=== PATIENT | female | born 1985 | race Caucasian/White ===

== ENCOUNTER 2019-02-14 19:17 | Emergency (ER) | payer MEDICAID ==
--- NOTE | 2019-02-14 19:30 | Emergency Department Report ---
Blank Doc - Documentation Documentation: This is a 34-year-old female that presents with dysuria and pelvic pain. This initial assessment/diagnostic orders/clinical plan/treatment(s) is/are subject to change based on patient's health status, clinical progression and re- assessment by fellow clinical providers in the ED. Further treatment and workup at subsequent clinical providers discretion. Patient/guardians urged not to elope from the ED as their condition may be serious if not clinically assessed and managed. Initial orders include: 1- Patient sent to [facility] for further evaluation and treatment 2- UA
[2019-02-14 19:31] VITALS: BP 106/65
[2019-02-14 21:14] LABS: Bacteria,Urine 4+ /HPF (Negative); Bilirubin,Urine NEG (Negative); Blood,Urine LG (Negative); Color,Urine Amber (Yellow); Mucus,Urine FEW /HPF; Urobilinogen,Urine < 2.0 mg/dL (<2.0)
[2019-02-14 21:18] LABS: HCG Qualitative,Urine Negative (Negative); WBC,Urine > 182.0 /HPF (0.0-6.0)
--- NOTE | 2019-02-14 22:15 | Emergency Department Report ---
ED Female HPI - General Chief complaint: Abdominal Pain Stated complaint: BLADDER PAIN WHEN URINATING Time Seen by Provider: 02/14/19 19:29 Source: patient Mode of arrival: Ambulatory Limitations: No Limitations - History of Present Illness Initial comments: This is a 34-year-old female that presents to the emergency room with dysuria for one week. Patient also reports some pressure to suprapubic region. She is currently taking Azo. Patient states Azo usually take care of urinary tract infections for her. She also reports nausea on yesterday without vomiting. MD Complaint: dysuria, pelvic pain Onset/Timin -: week(s) Location: suprapubic Radiation: non-radiating Severity: mild Severity scale (0 -10): 7 Quality: burning Consistency: intermittent Improves with: none Worsens with: urination Are you Now?: No Last Menstrual Period: 01/27/19 EDC: 11/03/19 Associated Symptoms: abdominal pain, dysuria. denies: vaginal discharge, vaginal bleeding, nausea/vomiting, fever/chills, headaches, loss of appetite, hematuria, rash, seizure, shortness of breath, syncope, weakness - Related Data Sexually active: Yes Previous Rx's Medication Instructions Recorded Last Taken Type levoFLOXacin [Levaquin TAB] 500 mg PO DAILY #5 tablet 08/31/15 Unknown Rx Nitrofurantoin [place]/M-Cryst 100 mg PO Q12HR #10 capsule 02/14/19 Unknown Rx [Macrobid CAP] Phenazopyridine [Pyridium] 200 mg PO TID #6 tab 02/14/19 Unknown Rx Allergies Allergy/AdvReac Type Severity Reaction Status Date / Time No Known Allergies Allergy Unverified 08/30/15 08:48 ED Review of Systems ROS: Stated complaint: BLADDER PAIN WHEN URINATING Other details as noted in HPI Constitutional: denies: chills, fever Respiratory: denies: cough, shortness of breath, wheezing Cardiovascular: denies: chest pain, palpitations Gastrointestinal: abdominal pain, nausea. denies: vomiting, diarrhea, constipation Genitourinary: dysuria. denies: urgency, hematuria, discharge Musculoskeletal: denies: back pain, joint swelling, arthralgia Skin: denies: rash, lesions Neurological: denies: headache, weakness, paresthesias Psychiatric: denies: anxiety, depression ED Past Medical Hx - Past Medical History Previous Medical History?: No Hx Congestive Heart Failure: No Hx Diabetes: No Hx Asthma: No Hx COPD: No Hx HIV: No - Surgical History Past Surgical History?: No - Social History Smoking Status: Never Smoker Substance Use Type: None - Medications Home Medications: Home Medications Medication Instructions Recorded Confirmed Last Taken Type levoFLOXacin [Levaquin TAB] 500 mg PO DAILY #5 tablet 08/31/15 Unknown Rx Nitrofurantoin [place]/M-Cryst 100 mg PO Q12HR #10 capsule 02/14/19 Unknown Rx [Macrobid CAP] Phenazopyridine [Pyridium] 200 mg PO TID #6 tab 02/14/19 Unknown Rx ED Physical Exam - General Limitations: No Limitations General appearance: alert, in no apparent distress - Respiratory Respiratory exam: Present: normal lung sounds bilaterally. Absent: respiratory distress - Cardiovascular Cardiovascular Exam: Present: regular rate, normal rhythm. Absent: systolic murmur, diastolic murmur, rubs, gallop - GI/Abdominal GI/Abdominal exam: Present: soft, tenderness (suprapubic), normal bowel sounds. Absent: distended, guarding, rebound, rigid - Back Exam Back exam: Absent: CVA tenderness (R), CVA tenderness (L) - Neurological Exam Neurological exam: Present: alert, oriented X3, normal gait - Psychiatric Psychiatric exam: Present: normal affect, normal mood - Skin Skin exam: Present: warm, dry, intact, normal color. Absent: rash ED Course Vital Signs 02/14/19 02/14/19 19:29 19:30 Temperature 98.2 F 98.2 F Pulse Rate 100 H 98 H Respiratory 18 18 Rate Blood Pressure 106/65 106/65 O2 Sat by Pulse 96 96 Oximetry ED Medical Decision Making - Lab Data Lab Results 02/14/19 Range/Units 20:39 Urine Color Purvi (Yellow) Urine Turbidity Cloudy (Clear) Urine pH 6.0 (5.0-7.0) Ur Specific [place] 1.015 (1.003-1.030) Urine Protein 100 mg/dl (Negative) mg/dL Urine Glucose (UA) Neg (Negative) mg/dL Urine Ketones Neg (Negative) mg/dL Urine Blood Lg (Negative) Urine Nitrite Pos (Negative) Urine Bilirubin Neg (Negative) Urine Urobilinogen < 2.0 (<2.0) mg/dL Ur Leukocyte Esterase Lg (Negative) Urine WBC (Auto) > 182.0 H (0.0-6.0) /HPF Urine RBC (Auto) 60.0 (0.0-6.0) /HPF U Epithel Cells (Auto) 4.0 (0-13.0) /HPF Urine Bacteria (Auto) 4+ (Negative) /HPF Urine WBC Clumps 3+ /HPF Ur Transition Epith Cell 5 /HPF Urine Mucus Few /HPF Urine HCG, Qual Negative (Negative) - Medical Decision Making Patient was examined by me. Vitals are normal and patient is in no acute distress. Obtained a urinalysis and urine hCG. Urinalysis positive for acute cystitis. Start Macrobid and Pyridium. Patient instructed to increase fluid intake. Plan discussed with patient to discharge home and treat outpatient. Plan discussed with patient to discharge home and treat outpatient. He agrees with ER plan. Patient discharged home in stable condition. Follow up with PCP in 2-3 days. Critical care attestation.: If time is entered above; I have spent that time in minutes in the direct care of this critically ill patient, excluding procedure time. ED Disposition Clinical Impression: Dysuria, Pelvic pressure in female Acute cystitis Qualifiers: Hematuria presence: with hematuria Qualified Code(s): N30.01 - Acute cystitis with hematuria Disposition: TO HOME OR SELFCARE Is pt being admited?: No Does the pt Need Aspirin: No Condition: Stable Instructions: Abdominal Pain (ED), Urinary Tract Infection in Women (ED) Additional Instructions: Increase fluid intake to 1L to 2L daily. Complete full course of antibiotics as prescribed. Avoid drinking alcohol while taking antibiotics and for 24 hours after completion. Follow up with primary care provider in 2-3 days. Prescriptions: Nitrofurantoin [place]/M-Cryst [Macrobid CAP] 100 mg PO Q12HR #10 capsule Phenazopyridine [Pyridium] 200 mg PO TID #6 tab Referrals: ARLET WATERS MD [Primary Care Provider] - 3-5 Days [facility] [Outside] - 3-5 Days [facility] [Outside] - 3-5 Days Time of Disposition: 22:25
== END 2019-02-14 22:30 | disposition home or self-care (01) ==
LOC: ED 19:17
DX: N30.01 Acute cystitis with hematuria (principal)
CPT/HCPCS: 81001; 81025; 99283

== ENCOUNTER 2019-02-16 04:58 | Emergency (ER) | payer MEDICAID ==
[2019-02-16 05:44] LABS: Bilirubin,Urine NEG (Negative); Blood,Urine NEG (Negative); Color,Urine Amber (Yellow); Protein,Urine <15 mg/dL mg/dL (Negative)
[2019-02-16 05:45] LABS: WBC,Urine < 1.0 /HPF (0.0-6.0)
[2019-02-16 05:46] LABS: HCG Qualitative,Urine Negative (Negative)
[2019-02-16] MEDS ORDERED: ZOFRAN IV ONE (07:16)
[2019-02-16] MEDS ORDERED: NACL 0.9% 1000 ML 1,000 ML IV ONE (07:16)
[2019-02-16] MEDS ORDERED: ROCEPHIN/NS 1 GM/50 ML 1 GM/50 ML BAG IV ONE (07:16)
--- NOTE | 2019-02-16 08:17 | Emergency Department Report ---
ED Dysuria HPI - HPI Chief Complaint: Fever Stated Complaint: FEVER and dysuria Time Seen by Provider: 02/16/19 07:15 Location of Discomfort: Urethra (dysuria) Severity: Mild Symptoms: Dysuria: Yes, Frequency: No, Suprapubic Pain: No, Flank Pain: No, Fever: Yes, Hematuria: No, Abdominal Pain: No, Previous UTI's: Yes Other History: Patient is a 34-year-old female who comes to the ER tonight complaining of fever and burning with urination. She was seen here on Thursday for the same. At that time her urine had greater than 182 WBCs. She was sent home on Macrobid. She states that her fevers have persisted and she continues to have dysuria. Patient denies any abdominal pain, back pain or nausea and vomiting. Patient denies any significant medical history and is on no medications daily except for the Macrobid. ED Review of Systems ROS: Stated complaint: FEVER VOMTING HEADACHE PAIN IN HIPS Other details as noted in HPI Comment: All other systems reviewed and negative ED Past Medical Hx - Past Medical History Previous Medical History?: No Hx Congestive Heart Failure: No Hx Diabetes: No Hx Asthma: No Hx COPD: No Hx HIV: No - Surgical History Past Surgical History?: No - Social History Smoking Status: Never Smoker Substance Use Type: None - Medications Home Medications: Home Medications Medication Instructions Recorded Confirmed Last Taken Type Phenazopyridine [Pyridium] 200 mg PO TID #6 tab 02/14/19 Unknown Rx Sulfamethoxazole/Trimethoprim 1 each PO BID #6 tablet 02/16/19 Unknown Rx [Bactrim DS TAB] Dysuria Exam - Exam General: Vital signs noted. No distress. Alert and acting appropriately. Exam: Yes Moist Mucous Membranes, No CVA Tenderness, No Abdominal Tenderness, No Rigidity or Guarding Labs: Lab Results 02/16/19 Range/Units 05:24 Urine Color Purvi (Yellow) Urine Turbidity Clear (Clear) Urine pH 5.0 (5.0-7.0) Ur Specific [place] 1.015 (1.003-1.030) Urine Protein <15 mg/dl (Negative) mg/dL Urine Glucose (UA) Neg (Negative) mg/dL Urine Ketones Neg (Negative) mg/dL Urine Blood Neg (Negative) Urine Nitrite Pos (Negative) Urine Bilirubin Neg (Negative) Urine Urobilinogen 4.0 (<2.0) mg/dL Ur Leukocyte Esterase Neg (Negative) Urine WBC (Auto) < 1.0 (0.0-6.0) /HPF Urine RBC (Auto) 4.0 (0.0-6.0) /HPF U Epithel Cells (Auto) 2.0 (0-13.0) /HPF Urine HCG, Qual Negative (Negative) ED Course Vital Signs 02/16/19 05:02 Temperature 99.8 F H Pulse Rate 110 H Respiratory 18 Rate Blood Pressure 120/63 O2 Sat by Pulse 98 Oximetry ED Medical Decision Making - Lab Data Result diagrams: 02/16/19 Unknown 02/16/19 Unknown - Medical Decision Making Labs 02/16/19 05:24 Urine Color Purvi Urine Turbidity Clear Urine pH 5.0 Ur Specific [place] 1.015 Urine Protein <15 mg/dl Urine Glucose (UA) Neg Urine Ketones Neg Urine Blood Neg Urine Nitrite Pos Urine Bilirubin Neg Urine Urobilinogen 4.0 Ur Leukocyte Esterase Neg Urine WBC (Auto) < 1.0 Urine RBC (Auto) 4.0 U Epithel Cells (Auto) 2.0 Urine HCG, Qual Negative Vital Signs 02/16/19 05:02 Temperature 99.8 F H Pulse Rate 110 H Respiratory 18 Rate Blood Pressure 120/63 O2 Sat by Pulse 98 Oximetry previous UA noted. preg neg. WBC normal. No abd pain, No N/V/D. No CVA tenderness. She has intermittent fevers which respond to tylenol or motrin. medicated for fever; NS/IV rocephin On dc ambulatory, taking PO and in NAD. She has been educated on fever anshul gement etc. Motrin PO prior to dc for fever. Macrobid dc home with family and placed on bactrum with discharge follow up. Lab Results 02/16/19 02/16/19 02/16/19 Range/Units 05:24 09:29 Unknown WBC 10.7 (4.5-11.0) K/mm3 RBC 4.36 (3.65-5.03) M/mm3 Hgb 13.2 (10.1-14.3) gm/dl Hct 39.6 (30.3-42.9) % MCV 91 (79-97) fl MCH 30 (28-32) pg MCHC 33 (30-34) % RDW 13.0 L (13.2-15.2) % Plt Count 174 (140-440) K/mm3 Sodium 139 (137-145) mmol/L Potassium 3.9 (3.6-5.0) mmol/L Chloride 105.4 (98-107) mmol/L Carbon Dioxide 22 (22-30) mmol/L Anion Gap 16 mmol/L BUN 9 (7-17) mg/dL Creatinine 0.6 L (0.7-1.2) mg/dL Estimated GFR > 60 ml/min BUN/Creatinine Ratio 15 % Glucose 103 H (65-100) mg/dL Calcium 8.3 L (8.4-10.2) mg/dL Urine Color Purvi (Yellow) Urine Turbidity Clear (Clear) Urine pH 5.0 (5.0-7.0) Ur Specific [place] 1.015 (1.003-1.030) Urine Protein <15 mg/dl (Negative) mg/dL Urine Glucose (UA) Neg (Negative) mg/dL Urine Ketones Neg (Negative) mg/dL Urine Blood Neg (Negative) Urine Nitrite Pos (Negative) Urine Bilirubin Neg (Negative) Urine Urobilinogen 4.0 (<2.0) mg/dL Ur Leukocyte Esterase Neg (Negative) Urine WBC (Auto) < 1.0 (0.0-6.0) /HPF Urine RBC (Auto) 4.0 (0.0-6.0) /HPF U Epithel Cells (Auto) 2.0 (0-13.0) /HPF Urine HCG, Qual Negative (Negative) 02/16/19 Range/Units Unknown WBC (4.5-11.0) K/mm3 RBC (3.65-5.03) M/mm3 Hgb (10.1-14.3) gm/dl Hct (30.3-42.9) % MCV (79-97) fl MCH (28-32) pg MCHC (30-34) % RDW (13.2-15.2) % Plt Count (140-440) K/mm3 Sodium TNR (137-145) mmol/L Potassium TNR (3.6-5.0) mmol/L Chloride TNR (98-107) mmol/L Carbon Dioxide TNR (22-30) mmol/L Anion Gap TNR mmol/L BUN TNR (7-17) mg/dL Creatinine TNR (0.7-1.2) mg/dL Estimated GFR TNR ml/min BUN/Creatinine Ratio TNR % Glucose TNR (65-100) mg/dL Calcium TNR (8.4-10.2) mg/dL Urine Color (Yellow) Urine Turbidity (Clear) Urine pH (5.0-7.0) Ur Specific [place] (1.003-1.030) Urine Protein (Negative) mg/dL Urine Glucose (UA) (Negative) mg/dL Urine Ketones (Negative) mg/dL Urine Blood (Negative) Urine Nitrite (Negative) Urine Bilirubin (Negative) Urine Urobilinogen (<2.0) mg/dL Ur Leukocyte Esterase (Negative) Urine WBC (Auto) (0.0-6.0) /HPF Urine RBC (Auto) (0.0-6.0) /HPF U Epithel Cells (Auto) (0-13.0) /HPF Urine HCG, Qual (Negative) Critical care attestation.: If time is entered above; I have spent that time in minutes in the direct care of this critically ill patient, excluding procedure time. ED Disposition Clinical Impression: Acute cystitis Disposition: TO HOME OR SELFCARE Is pt being admited?: No Does the pt Need Aspirin: No Condition: Stable Instructions: Urinary Tract Infection in Women (ED) Additional Instructions: DIET TOLERATED MEDS ORDERED TODAY IN ER FOLLOW INSTRUCTIONS ON THE BOTTLE FOLLOW UP PCP WITHIN 48 HOURS TO ENSURE YOU ARE GETTING BETTER ACTIVITY TOLERATED MOTRIN OR TYLENOL FOR PAIN OR FEVER RETURN TO THE ER FOR WORSENING SYMPTOMS NOT RELIEVED BY YOUR MEDICATIONS. STOP MACROBID TAKE MED GIVEN TODAY UNTIL GONE. Prescriptions: Sulfamethoxazole/Trimethoprim [Bactrim DS TAB] 1 each PO BID #6 tablet [facility] [Primary Care Provider] - 3-5 Days SHANNAN AZUL MD [Staff Physician] - 3-5 Days JANA SOLIMAN MD [Staff Physician] - 3-5 Days Time of Disposition: 08:16
[2019-02-16 08:43] LABS: Hematocrit 39.6 % (30.3-42.9); Hemoglobin 13.2 gm/dl (10.1-14.3); Mean Corpuscular HGB Conc 33 % (30-34); Mean Corpuscular Volume 91 fl (79-97); Red Blood Count 4.36 M/mm3 (3.65-5.03)
[2019-02-16 09:03] LABS: BUN/Creatinine Ratio TNR; Blood Urea Nitrogen TNR mg/dL (7-17)
[2019-02-16 09:04] LABS: Calcium TNR mg/dL (8.4-10.2); Hemolysis Index TNR
[2019-02-16 09:51] LABS: Platelet Count 174 K/mm3 (140-440)
[2019-02-16 09:58] LABS: BUN/Creatinine Ratio 15; Blood Urea Nitrogen 9 mg/dL (7-17); Calcium 8.3 mg/dL (8.4-10.2); Hemolysis Index 5
[2019-02-16] MEDS ORDERED: IBUPROFEN PO ONE ×2 (10:06→10:09)
[2019-02-16 10:14] VITALS: BP 99/55
== END 2019-02-16 10:14 | disposition home or self-care (01) ==
LOC: ED 04:58
DX: N30.00 Acute cystitis without hematuria (principal)
CPT/HCPCS: 36415; 80048; 81001; 81025; 85027; 96365; 96375; 99283; J0696; J2405; J7030